=== PATIENT | female | born 1965 | race Caucasian/White ===

== ENCOUNTER → 2016-09-06 | Day surgery (SDC) | payer OTHER ==
[~2016-09-06] MED LIST: BYSTOLIC20 MG PO; CHANTIX0.5 MG PO; DOCUSATE SODIU250 MG PO; LIORESAL TAB 1010 MG PO; NAPROSYN500 MG PO; NORVASC 5 MG TAB5 MG PO; PERCOCET 5-3251 EACH PO; PHENERGAN 12.12.5 M1 PO; PRISTIQ ER100 MG PO; PROTONIX 40 MG40 M1 PO; SYMBICORT 16010.2 GM INH; TOPAMAX100 MG PO; TOPAMAX50 MG PO; TRAZODONE HCL50 MG PO
== END | disposition home or self-care (01) ==
PROVIDERS: Orthopaedic Surgery
PROC: 0LB14ZZ Excision of Right Shoulder Tendon, Percutaneous Endoscopic Approach (ICD-10-PCS; principal; 2016-09-06 07:45)
PROC: 0RBJ4ZZ Excision of Right Shoulder Joint, Percutaneous Endoscopic Approach (ICD-10-PCS; 2016-09-06 07:45)
PROC: 0LS30ZZ Reposition Right Upper Arm Tendon, Open Approach (ICD-10-PCS; 2016-09-06 07:45)
DX: M75.121 Complete rotator cuff tear or rupture of right shoulder, not specified as traumatic (principal); M75.21 Bicipital tendinitis, right shoulder; I10 Essential (primary) hypertension; E11.9 Type 2 diabetes mellitus without complications; J44.9 Chronic obstructive pulmonary disease, unspecified; J40 Bronchitis, not specified as acute or chronic; K21.9 Gastro-esophageal reflux disease without esophagitis; G43.909 Migraine, unspecified, not intractable, without status migrainosus; G89.29 Other chronic pain; M54.9 Dorsalgia, unspecified; F32.9 Major depressive disorder, single episode, unspecified; F17.210 Nicotine dependence, cigarettes, uncomplicated; Z87.01 Personal history of pneumonia (recurrent); Z82.49 Family history of ischemic heart disease and other diseases of the circulatory system; Z83.3 Family history of diabetes mellitus; Z88.1 Allergy status to other antibiotic agents; Z88.8 Allergy status to other drugs, medicaments and biological substances; Z79.1 Long term (current) use of non-steroidal anti-inflammatories (NSAID); Z79.891 Long term (current) use of opiate analgesic; Z79.899 Other long term (current) drug therapy; Z98.890 Other specified postprocedural states
CPT/HCPCS: 73030; 82962; C1713; J0171; J0690; J1100; J2001; J2250; J2405; J2710; J2795; J3010; J7030; J7120